=== PATIENT | female | born 1955 | race Caucasian/White ===

== ENCOUNTER 2019-10-12 01:15 | Observation (INO) | payer MEDICARE, SELFPAY ==
[2019-10-12] VITALS (14 sets, daily range): BP systolic 92–147; BP diastolic 53–83; PULSE 54–75; RESP 12–20; TEMP 36.3–37.4; O2SAT 93–100; BMI 31.4
--- NOTE | ~2019-10-12 | CT_ITS ---
EXAMINATION: CT abdomen pelvis w con INDICATION: Generalized abdominal pain TECHNIQUE: Computed tomographic images of the abdomen and pelvis were obtained after the administrati on of 100 cc of Omnipaque 350 intravenous contrast. The dose-length product (DLP) was 783.28 mGy-cm. Automated exposure control and iterative reconstruction technique were employed. COMPARISON: MRI, 02/21/2018 FINDINGS: The lung bases are clear. The heart size is normal. There is a small sliding hiatal hernia. The liver is diffusely low in attenuation when compared with the spleen, consistent with hepatic irma atosis. The gallbladder is distended and contains at least three stones. The spleen, pancreas, and ad renal glands are normal. Hypoattenuating lesions in the kidneys, measuring up to 8 mm on the right, a re too small to characterize but likely represent cysts. No pathologically enlarged abdominal or pelv ic lymph nodes are identified. There is no free intraperitoneal gas or evidence of bowel obstruction. The appendix is normal. Colonic diverticulosis is present without evidence of diverticulitis. There is moderate lumbar spondylosis at L5-S1. IMPRESSION: 1. Cholelithiasis with gallbladder distention. Finding could reflect acute cholecystitis. Consider fu rther evaluation with ultrasound or nuclear hepatobiliary scan. Reviewed, dictated and finalized at location A. BUILDER IMPRESSION: 1. Cholelithiasis with gallbladder distention. Finding could reflect acute chol ecystitis. Consider further evaluation with ultrasound or nuclear hepatobiliary scan.
--- NOTE | ~2019-10-12 | XR_ITS ---
EXAMINATION: XR chest 2V DATE: 10/12/2019 02:19 INDICATION: Midsternal chest pain TECHNIQUE: PA and lateral views of the chest are obtained. COMPARISON: None available FINDINGS: The lungs are free of acute opacities. There is no pleural effusion or pneumothorax. The ca rdiomediastinal silhouette is normal. The visualized bones and soft tissues are unremarkable. IMPRESSION: 1. No acute cardiopulmonary abnormality. Reviewed, dictated and finalized at location A. [facility]
--- NOTE | 2019-10-12 01:31 | ECG_ITS ---
Measurements Intervals [place] Rate: 54 P: -6 [place]: 159 QRS: 4 QRSD: 96 T: 17 QT: 429 QTc: 409 Interpretive Statements SINUS BRADYCARDIA LOW QRS VOLTAGE IN PRECORDIAL LEADS BORDERLINE T WAVE ABNORMALITY- INFERIOR LEADS BASELINE ARTIFACT- I, II, III, AVR, AVL, AVF BORDERLINE ECG Electronically Signed On 10-12-2019 6:53:23 DIRECTOR OF PARKS AND RECREATION by Brayan Whiting D.O.
--- NOTE | 2019-10-12 01:42 | ED.ABDPAIN ---
HPI - Abdominal Pain General Chief Complaint: Abdominal Pain Stated Complaint: cp Time Seen by Provider: 10/12/19 01:24 Source: patient and RN notes reviewed Mode of arrival: ambulatory Limitations: no limitations History of Present Illness HPI narrative: Pt is a 64 y/o female who presents to the ED with c/o epigastric pain starting around 11 PM this evening. She notes that her pain radiates into her back, and states that her pain is aggravated with deep breathing. Pt reports nausea and vomiting accompanying her pain, but denies any fever or chills. She states that she took 2 Tylenol for her pain this evening. Pt notes that she still has her gallbladder. MD elicited complaint: abdominal pain Onset (ago): hour(s) (2.5) Location: epigastric Radiation: back Exacerbating factors: other (deep breathing) Associated symptoms: nausea and vomiting Treatments prior to arrival: other (Tylenol) Related Data Allergies Allergy/AdvReac Type Severity Reaction Status Date / Time Penicillins Allergy Mild Hives Verified 10/12/19 01:30 Review of Systems Review of Systems: All systems reviewed & are unremarkable except as noted in HPI and below Constitutional: Constitutional: Denies chills and Denies fever(s) Gastrointestinal: Gastrointestinal: Reports abdominal pain (epigastric pain radiating into back), Reports nausea and Reports vomiting PMFSH Past Medical History Medical History Arm fracture DDD (degenerative disc disease) GERD (gastroesophageal reflux disease) HLD (hyperlipidemia) HTN (hypertension) Surgical History Surgical History Hx of tonsillectomy Family History Family History (Updated 04/09/12 @ 08:29 by DOCTOR UNKNOWN) Other Family history of coronary artery disease Hypertension Social History Social History Smoking status: Never smoker Alcohol intake: never Exam Narrative: Exam Narrative: APPEARANCE: No acute distress, nontoxic, resting in bed EYES: EOMI HEENT: Normocephalic, atraumatic, OMM RESPIRATORY: No respiratory distress Clear to auscultation bilaterally with no rhonchi wheezing or rales. CARDIOVASCULAR: Regular rate and rhythm without murmurs rubs or gallops. ABDOMINAL: Soft, nondistended, tender palpation epigastric and right upper quadrant, no tenderness left upper quadrant, right lower quadrant left lower quadrant, no rebound or guarding MUSCULOSKELETAl: Moves all extremities. No clubbing, cyanosis or edema. NEURO: Awake and alert. Following commands, speech normal, no focal deficits SKIN:: Warm, dry. No rashes lesions or abrasions PSYCHIATRIC: Normal affect/mood, Course Course Emergency Course: Discussed with Dr. Melara presentation work-up. Agrees with admission to his service at this time. Recommends no antibiotics at this time Discussed with patient and family results of workup and diagnosis. Discussed need for admission. Patient and family understand and agree to current treatment plan Vital Signs Vital signs: Vital Signs Temperature 98.2 F 10/12/19 01:22 Pulse Rate 55 L 10/12/19 01:22 Respiratory Rate 12 10/12/19 01:22 Blood Pressure 147/83 H 10/12/19 01:22 Pulse Oximetry 100 10/12/19 01:22 Temperature 98.2 F 10/12/19 01:22 Pulse Rate 70 10/12/19 02:21 Respiratory Rate 19 10/12/19 02:21 Blood Pressure 124/66 10/12/19 02:21 Pulse Oximetry 100 10/12/19 02:21 MDM - Abdominal Pain Lab Data Result diagrams: 10/12/19 01:44 10/12/19 01:42 Labs: Lab Results 10/12/19 10/12/19 10/12/19 Range/Units 01:42 01:42 01:44 WBC 14.9 H (4.5-10.0) K/mm3 RBC 4.91 (4.2-5.4) M/mm3 Hgb 14.4 (12.0-15.0) g/dL Hct 43.2 (37.0-47.0) % MCV 88.0 (80-100) fl MCH 29.3 (26-34) pg MCHC 33.3 (32-36) g/dl RDW 13.3 (11.5-14.5) % Plt Count 282 (150-375)
[2019-10-12 01:55] LABS: Basophils Absolute Auto 0.1 K/mm3 (0.0-0.1); Basophils Percent Auto 0.7 % (0.2-1.2); Eosinophils Absolute Auto 0.2 K/mm3 (0-0.3); Eosinophils Percent Auto 1.6 % (0-4.4); Hematocrit 43.2 % (37.0-47.0); Hemoglobin 14.4 g/dL (12.0-15.0); Immature Granulocyte Absolute 0.13 K/mm3 (0.00-0.031); Immature Granulocyte Percent A 0.9 % (0-0.5); Lymphocytes Absolute Auto 1.89 K/mm3 (0.9-3.2); Lymphocytes Percent Auto 12.7 % (18.3-44.2); Mean Corpuscular HGB Conc 33.3 g/dl (32-36); Mean Corpuscular Hemoglobin 29.3 pg (26-34); Mean Platelet Volume 9.9 fl (7.4-10.4); Monocytes Absolute Auto 0.8 K/mm3 (0.1-0.6); Monocytes Percent Auto 5.3 % (2.6-8.5); Neutrophils Absolute Auto 11.8 K/mm3 (1.3-6.7); Neutrophils Percent Auto 78.8 % (45.5-73.1); Platelet Count Result 282 k/mm3 (150-375); Red Blood Count 4.91 M/mm3 (4.2-5.4); Red Cell Distribution Width 13.3 % (11.5-14.5); White Blood Count 14.9 K/mm3 (4.5-10.0)
[2019-10-12] MEDS: LACTATED RINGERS 1,000 ML 999 ML IV CONT (02:00)
[2019-10-12] MEDS: ONDANSETRON INJ 4 MG/2 ML VIAL IV PUSH (02:01)
[2019-10-12 02:03] LABS: Alanine Aminotransferase 49 U/L (4-35); Albumin Level 4.3 g/dL (3.5-5.1); Alkaline Phosphatase 138 U/L (38-126); Aspartate Amino Transferase 31 U/L (14-36); Bilirubin,Total 0.6 mg/dL (0.2-1.3); Blood Urea Nitrogen 19 mg/dL (7-17); Calcium 9.7 mg/dL (8.4-10.2); Carbon Dioxide 31 mmol/L (22-30); Chloride 96 mmol/L (98-107); Estimated Glomerular Filt Rate > 60; Glucose 146 mg/dL (65-105); Lipase 46 U/L (23-300); Potassium 3.7 mmol/L (3.4-5.0); Sodium 140 mmol/L (137-145)
[2019-10-12 02:07] LABS: INR 0.9
--- NOTE | 2019-10-12 02:07 | PC.NURSE ---
Patient taken to CT.
[2019-10-12 02:08] LABS: Partial Thromboplastin Time 33.6 SECONDS (22.3-36.8)
[2019-10-12 02:16] LABS: Troponin I < 0.012 ng/mL (0.000-0.034)
[2019-10-12] MEDS: MORPHINE SULFATE 4 MG/ML INJ IV PUSH (02:28)
[2019-10-12 03:44] LABS: Alanine Aminotransferase 50 U/L (4-35); Albumin Level 4.3 g/dL (3.5-5.1); Alkaline Phosphatase 134 U/L (38-126); Aspartate Amino Transferase 33 U/L (14-36); Bilirubin,Total 0.5 mg/dL (0.2-1.3); Blood Urea Nitrogen 19 mg/dL (7-17); Calcium 9.7 mg/dL (8.4-10.2); Carbon Dioxide 30 mmol/L (22-30); Chloride 98 mmol/L (98-107); Estimated Glomerular Filt Rate > 60; Glucose 149 mg/dL (65-105); Potassium 3.7 mmol/L (3.4-5.0); Sodium 138 mmol/L (137-145)
--- NOTE | 2019-10-12 04:10 | ADMGEN ---
This patient, Mary Beth, was admitted to 2 Medical Room 240-. Patient/family oriented to hospital policies and general routines including ID bracelet, bed and alarms, visiting hours, pain management, procedures, bathroom and other care routines, personal items, smoking policy, room service/diet, and visiting hours. Valuables list has been completed. Information on how to activate the Rapid Response Team has been discussed. Patient/Family are encouraged to report perceived risks to care and to ask questions if they do not understand what they are told or what they should do.
[2019-10-12] MEDS: LACTATED RINGERS 1,000 ML 125 ML IV CONT ×2 (04:31→12:37)
[2019-10-12 06:29] LABS: Troponin I < 0.012 ng/mL (0.000-0.034)
[2019-10-12 08:10] LABS: Troponin I < 0.012 ng/mL (0.000-0.034)
--- NOTE | 2019-10-12 08:36 | WPDANESEPPF ---
Anes - Initial Pre Proc Eval Procedure: Operation Date: 10/12/19 16:00 Proposed Procedures p Laparoscopic Cholecystectomy,Possible Open - Hung Melara DO Date/Time: 10/12/19 08:36 Surgeon: Hung Melara DO Pre Op Diagnosis: Cholecystitis Patient Data Age: 64 Gender: F Height: 1.6 m Weight: 80.4 kg Last Vital Signs Temp 36.3 C L 10/12/19 05:39 Pulse 75 10/12/19 05:39 Resp 16 10/12/19 05:39 BP 135/67 10/12/19 05:39 Pulse Ox 97 10/12/19 05:39 Allergies Allergy/AdvReac Type Severity Reaction Status Date / Time Penicillins Allergy Mild Hives Verified 10/12/19 01:30 Home Medications Medication Instructions Recorded Confirmed Type atorvastatin 20 mg PO DAILY 10/12/19 10/12/19 History esomeprazole magnesium [Nexium] 20 mg PO DAILY 10/12/19 10/12/19 History estradiol 1 g VAGINAL TID 10/12/19 10/12/19 History hydrochlorothiazide 25 mg PO DAILY 10/12/19 10/12/19 History losartan 100 mg PO DAILY 10/12/19 10/12/19 History Laboratory Tests 10/12/19 10/12/19 10/12/19 01:42 01:42 01:43 WBC RBC Hgb Hct MCV MCH MCHC RDW Plt Count MPV Immature Gran % (Auto) Neut % (Auto) Lymph % (Auto) Mer[place] % (Auto) Eos % (Auto) Baso % (Auto) Lymph # (Auto) Merrick # (Auto) Eos # (Auto) Baso # (Auto) Abs Immat Gran (auto) Absolute Neuts (auto) Absolute Nucleated RBC Nucleated RBC % PT 12.0 Seconds Seconds (11.1-14.7) INR 0.9 APTT 33.6 SECONDS SECONDS (22.3-36.8) Sodium 140 mmol/L mmol/L 138 mmol/L mmol/L (137-145) (137-145) Potassium 3.7 mmol/L mmol/L 3.7 mmol/L mmol/L (3.4-5.0) (3.4-5.0) Chloride 96 mmol/L L mmol/L 98 mmol/L mmol/L (98-107) (98-107) Carbon Dioxide 31 mmol/L H mmol/L 30 mmol/L mmol/L (22-30) (22-30) BUN 19 mg/dL H mg/dL 19 mg/dL H mg/dL (7-17) (7-17) Creatinine 0.80 mg/dL mg/dL 0.80 mg/dL mg/dL (0.7-1.0) (0.7-1.0) Estim Creat Clear Calc Not Reportable Not Reportable Estimated GFR > 60 > 60 (59 - ) (59 - ) Glucose 146 mg/dL H mg/dL 149 mg/dL H mg/dL (65-105) (65-105) Calcium 9.7 mg/dL mg/dL 9.7 mg/dL mg/dL (8.4-10.2) (8.4-10.2) Total Bilirubin 0.6 mg/dL mg/dL 0.5 mg/dL mg/dL (0.2-1.3) (0.2-1.3) Direct Bilirubin 0.0 mg/dL mg/dL (0-0.3) AST 31 U/L U/L 33 U/L U/L (14-36) (14-36) ALT 49 U/L H U/L 50 U/L H U/L (4-35) (4-35) Alkaline Phosphatase 138 U/L H U/L 134 U/L H U/L (38-126) (38-126) Troponin I < 0.012 ng/mL ng/mL (0.000-0.034) Total Protein 8.0 g/dL g/dL 7.0 g/dL g/dL (6.3-8.2) (6.3-8.2) Albumin 4.3 g/dL g/dL 4.3 g/dL g/dL (3.5-5.1) (3.5-5.1) Lipase 46 U/L U/L (23-300) 10/12/19 10/12/19 10/12/19 01:44 04:58 07:32 WBC 14.9 K/mm3 H K/mm3 (4.5-10.0) RBC 4.91 M/mm3 M/mm3 (4.2-5.4) Hgb 14.4 g/dL g/dL (12.0-15.0) Hct 43.2 % % (37.0-47.0) MCV 88.0 fl fl (80-100) MCH 29.3 pg pg (26-34) MCHC 33.3 g/dl g/dl (32-36) RDW 13.3 % % (11.5-14.5) Plt Count 282 k/mm3 k/mm3 (150-375) MPV 9.9 fl fl (7.4-10.4) Immature Gran % (Auto) 0.9 % H % (0-0.5) Neut % (Auto) 78.8 % H % (45.5-73.1) Lymph % (Auto) 12.7 % L % (18.3-44.2) Merrick % (Auto) 5.3 % % (2.6-8.5) Eos % (Auto) 1.6 % % (0-4.4) Baso % (Auto) 0.7 % % (0.2-1.2) Lymph # (Auto) 1.89 K/mm3 K/mm3 (0.9-3.2) [place] # (Auto) 0.8 K/mm3 H K/mm3 (0.1-0.6) Eos # (Auto) 0.2 K/mm3 K/mm3 (0-0.3)
--- NOTE | 2019-10-12 09:29 | PM.IMHP ---
H&P: HPI History of Present Illness Chief complaint: Cholecystitis Narrative: Mary Beth is a 64 year old female with a history of hypertension, hyperlipidemia, and GERD, who presented to the emergency department with complaints of midsternal chest pain radiating to her back. The patient reports eating a rice and chicken meal with a crescent roll last night for dinner. She then ate ice cream and potato chips after this. The patient then developed a sudden onset of midsternal chest pain that radiated to her back around 10:00 p.m. while lying in bed. She reports having a similar episode of pain like this a few years ago that her PCP thought was related to her gallbladder, but the pain quickly resolved after about an hour and a half. This time, the pain continued to worsen and did not improve with getting up and walking around. She did develop nausea and vomiting. She felt the pain was worsening and was unrelenting, therefore she presented to the emergency department for further evaluation. CT scan of the abdomen and pelvis showed a distended gallbladder with a 1.7 cm gallstone near the neck of the gallbladder[place] [address], AST 33, ALT 50, alk-phos 134, lipase 46, and troponins negative x3. Chest x-ray showed no acute cardiopulmonary abnormalities. EKG was negative for acute changes. Our service was then contacted for the concern of acute cholecystitis with cholelithiasis. The patient was admitted to observation, started on IV fluids, analgesics, and made NPO. The patient is now being seen on the medical floor. She reports her pain has improved significantly after receiving pain medication. She still feels some mild pain but points to the epigastric region and states it radiates to her mid sternal chest and back. Reports the nausea has improved significantly. Bowels have been moving normally with her last bowel movement this morning. No other complaints at this time. Review of Systems Constitutional: Constitutional: Reports as per HPI, Denies chills, Denies excessive sweating, Denies fatigue, Denies fever(s), Denies headache(s) and Denies weakness Eyes: Eyes: Denies change in vision and Denies loss of vision ENT: Reports Normal hearing present, Denies dizziness and Denies headache(s) Cardiovascular: Cardiovascular: Reports chest pain (Mid sternal at rest, does not worsen with activity), Denies syncope, Denies pedal edema, Denies leg edema, Denies lightheadedness, Denies radiating jaw, neck or arm pain, Denies palpitations, Denies dyspnea, Denies dyspnea on exertion and Denies orthopnea Respiratory: Respiratory: Denies cough, Denies dyspnea and Denies wheezing Gastrointestinal: Gastrointestinal: Reports as per HPI, Reports abdominal pain (Epigastric), Denies bloating, Denies change in bowel habits, Denies constipation, Denies diarrhea, Reports nausea and Reports vomiting Musculoskeletal: Musculoskeletal: Denies deformity, Denies joint swelling, Denies radiating pain into limb and Denies tingling Integumentary/Breasts: Skin/Breast: Denies pruritus, Denies wounds and Denies jaundice Neurologic: Reports Normal hearing present, Denies confusion, Denies dizziness, Denies syncope, Denies headache(s), Denies loss of vision, Denies tingling, Denies tremor(s) and Denies weakness Psychiatric: Psychiatric: Denies anxiety and Denies depression Endocrine: Endocrine: Denies cold intolerance, Denies excessive sweating and Denies heat intolerance Hematologic/Lymphatic: Hematologic/Lymphatic: Denies easy bleeding and Denies easy bruising PMFSH Past Medical History Medical History Arm fracture DDD (degenerative disc disease) GERD (gastroesophageal reflux disease) HLD (hyperlipidemia) HTN (hypertension) Obesity Surgical History Surgical History (Updated 10/12/19 @ 09:40 by ELIER Maynard) History of colonoscopy January 2016, findings of internal hemorrhoi
[2019-10-12] MEDS: LACTATED RINGERS 1,000 ML 30 ML IV CONT (14:20)
--- NOTE | 2019-10-12 14:30 | PC.NURSE ---
To OR per bed. IV SL.
[2019-10-12] MEDS: IBUPROFEN IV 800 MG/200 ML 800 MG/200 ML BAG 400 MG IVPB (14:40)
[2019-10-12] MEDS: ceFAZolin 2 GM/D5W 50 ML 2 GM/50 ML BAG IVPB (16:52)
[2019-10-12] MEDS: BUPIVACAINE/EPINEPHRINE 0.5% 30 ML VIAL INFILTRATE (17:20)
--- NOTE | 2019-10-12 18:03 | PM.PROC ---
Procedure Note - Detailed Date of procedure: 10/12/19 Pre-op diagnosis: Acute calculous cholecystitis Post-op diagnosis: same Procedure performed: Laparoscopic Cholecystectomy Description of procedure: Procedure as well as risks, benefits, and alternatives were discussed with patient. Written consent was obtained and placed in chart prior to procedure. The patient was brought back to surgical suite. Patient was placed in supine position on operating table. Time-out was done to confirm patient and procedure. Patient was then intubated by the anesthesia department. Abdomen was prepped and draped in sterile fashion using chlorhexidine prep. 0.5% bupivacaine with epinephrine was infiltrated at each site of incision. A 5 millimeter incision was made near the umbilicus, and a 5 millimeter Optiview trocar was advanced through the abdominal layers under direct visualization. Once inside the abdominal cavity, carbon dioxide was insufflated to create a pneumoperitoneum. The camera was inserted and the abdomen was inspected. No immediate abnormalities were identified. The patient was placed in reverse Trendelenburg position and rotated slightly to the left. An 11 millimeter incision was made in the subxiphoid region, and an 11 millimeter trocar was inserted under direct visualization. Two 5 millimeter incisions were made in the right upper quadrant, and two 5 millimeter trocars were inserted under direct visualization. The gallbladder was identified and grasped at the fundus and retracted superiorly. It was then grasped at the infundibulum retracted laterally. Careful dissection around the neck of the gallbladder was performed using blunt dissection with a [place] grasper and hook electrocautery. The cystic duct was identified, and a window was created behind it. The cystic artery was also identified and a window was created behind it. The critical view of safety was identified, visualizing the cystic duct running directly into the neck of the gallbladder, and the cystic artery running directly into the wall of the gallbladder. A 5 millimeter clip insulation blower was then used to place 2 clips proximally and 1 clip distally on both the cystic duct and cystic artery. They were then both transected using endoscopic scissors. Once safely away from the jaquelin hepatitis, the gallbladder was dissected free from the liver bed using hook electrocautery. Hemostasis was achieved along the way. The gallbladder was removed completely and then removed through the subxiphoid port. The liver bed was then inspected. Hemostasis appeared adequate, and our clips appeared secure. The area was gently irrigated with sterile saline. No other abnormalities were seen. The patient was flattened out in bed, and 1 final inspection was made around the abdominal cavity. The subxiphoid port was removed, and a Dante Deuce cone was used to approximate the fascia with an 0-Vicryl simple interrupted suture. The remaining ports were then removed under direct visualization, the camera was removed, and the pneumoperitoneum was released. The skin of the incisions was approximated using 4-0 Monocryl subcuticular sutures. Exofin glue was applied on top. The patient was then awakened from anesthesia, extubated, and transferred to recovery. Anesthesia: GETA and local (0.5% bupivicaine with epi) Surgeon: Hung Melara DO Estimated blood loss (mL): 5 Drains: No Packing: No Pathology: yes Complications: No immediate complications Condition: stable (Patient tolerated procedure well, and is currently resting comfortably in recovery.) Disposition: same day Findings: This is a 64-year-old woman who presented to the emergency department this morning with complaints of epigastric and right upper quadrant abdominal pain. She began having pain last night shortly after dinner. She had 1 episode similar to this a couple years ago. She denied any fevers or chills or any change in bowel habits. In the dee
--- NOTE | 2019-10-12 19:26 | PC.NURSE ---
PT RETURNED FROM OR PER BED. A&OX3. VOICES NO C/O AT PRESENT
[2019-10-12] MEDS: metroNIDAZOLE 500 MG/ISO 100ML 500 MG/100 ML BAG 100 MG IVPB (21:38)
[2019-10-13 02:00] VITALS: BP 92/58; PULSE 65; RESP 16; TEMP 36.7; O2SAT 93
[2019-10-13] MEDS: metroNIDAZOLE 500 MG/ISO 100ML 500 MG/100 ML BAG 100 MG IVPB ×2 (03:03→08:24)
[2019-10-13 05:56] VITALS: BP 96/55; PULSE 60; RESP 16; TEMP 36.7; O2SAT 93
[2019-10-13 06:07] LABS: Hematocrit 37.4 % (37.0-47.0); Hemoglobin 12.3 g/dL (12.0-15.0); Mean Corpuscular HGB Conc 32.9 g/dl (32-36); Mean Corpuscular Hemoglobin 29.1 pg (26-34); Mean Corpuscular Volume 88.6 fl (80-100); Mean Platelet Volume 10.5 fl (7.4-10.4); Platelet Count Result 235 k/mm3 (150-375); Red Blood Count 4.22 M/mm3 (4.2-5.4); Red Cell Distribution Width 13.4 % (11.5-14.5); White Blood Count 12.3 K/mm3 (4.5-10.0)
[2019-10-13 06:24] LABS: Blood Urea Nitrogen 13 mg/dL (7-17); Calcium 8.5 mg/dL (8.4-10.2); Carbon Dioxide 27 mmol/L (22-30); Chloride 96 mmol/L (98-107); Estimated CRCL calculation 69 ml/min; Estimated Glomerular Filt Rate > 60; Glucose 122 mg/dL (65-105); Potassium 3.5 mmol/L (3.4-5.0); Sodium 136 mmol/L (137-145)
[2019-10-13 08:00] VITALS: BP 93/56; PULSE 58
[2019-10-13] MEDS: ATORVASTATIN 20 MG TABLET PO (08:27)
[2019-10-13] MEDS: PANTOPRAZOLE 40 MG TABLET PO (08:29)
[2019-10-13 10:00] VITALS: BP 106/65; PULSE 58; RESP 16; TEMP 36.3; O2SAT 97
--- NOTE | 2019-10-13 11:19 | PM.DS ---
DS: Diagnosis Admitting Diagnosis Admitting Diagnosis: Acute cholecystitis Discharge Diagnosis (1) Acute cholecystitis: Code(s): K81.0 - Acute cholecystitis Status: Acute (2) HTN (hypertension): Code(s): I10 - Essential (primary) hypertension Status: Acute (3) HLD (hyperlipidemia): Code(s): E78.5 - Hyperlipidemia, unspecified Status: Acute (4) GERD (gastroesophageal reflux disease): Code(s): K21.9 - Gastro-esophageal reflux disease without esophagitis Status: Acute (5) Obesity: Code(s): E66.9 - Obesity, unspecified Status: Acute DS: Summary Hospital Course Reason for hospitalization: Mary Beth is a 64 year old female with a history of hypertension, hyperlipidemia, and GERD, who presented to the emergency department with complaints of substernal chest pain radiating to her back. The pain started around 10:00 pm the evening before coming to the ED after eating a meal. She had associated nausea and vomiting. ED workup revealed leukocytosis of 14,900 and normal LFTs. Cardiac workup negative. CT scan of the abdomen and pelvis showed a distended gallbladder with a 1.7 cm gallstone near the neck of the gallbladder, concerning for acute cholecystitis. Our service was then contacted for the concern of acute cholecystitis with cholelithiasis. The patient was admitted to observation, started on IV fluids, analgesics, and made NPO. Hospital Course: After evaluation by myself and Dr. Melara, the decision was made to proceed with surgery. She had a laparoscopic cholecystectomy on 10/12/19. No immediate complications. She was started on IV antibotics due to the intraoperative findings of an acutely inflammed gallbladder with possible initial gangrenous changes. Due to her penicillin allergy, she was started on IV Levaquin/Flagyl and will be sent home on 5 days of oral antibiotics. The patient was slowly advanced to a low fat diet and is tolerating this well this morning without any nausea, vomiting, or bloating. Her abdominal pain post-op has been tolerable without any narcotic medications. She will be sent home on Tylenol and Ibuprofen as discussed. Her blood pressure was 90/50's this morning and I had the nurse hold her losartan and HCTZ and recheck her blood pressure. This came up above 100/60 and she is completely asymptomatic. She did have a LR bolus run through the night and is tolerating oral intake. When talking with the patient this morning, she tells me she will go 2-3 days without taking her blood pressure medication at times just due to forgetting and it takes her blood pressure a few days before it is high and she needs to start taking it again. She does have a BP machine at home to monitor her blood pressure. No signs of bleeding and minimal blood loss in surgery. She is hemodynamically stable. I instructed her to hold her BP medications today and monitor her blood pressure daily and PRN at home. Discussed s/s of hypertension and hypotension and what to do if either occur. She voiced understanding. Once her blood pressure is back to her normal, then she was instructed to restart her medications. Otherwise, the patient has no other complaints. She is voiding well and tolerating activity. Discussed with Dr. Melara this morning, who is also okay with discharging the patient today if stable. I discussed all discharge care instructions with her and her . Questions answered. Status at Discharge Functional status at discharge: independent ambulation Overall status at discharge: patient is progressing back to baseline Time Spent with Patient Time attestation: Total time spent providing and/or coordinating discharge services: Time spent: Greater than 30 minutes Exam Const: General: comfortable, no acute distress, alert and awake Orientation/consciousness: patient oriented x3 GI: Inspection: non-distended and incision (Abdominal incisions clean/dry/intact. mild ecchymosis around incisions)
== END 2019-10-13 12:21 | disposition home or self-care (01) ==
LOC: ANHED 03:06 → ANH2MED 03:36
PROVIDERS: Admitting Provider Surgery; Emergency Provider Emergency Medicine; PCP Internal Medicine; Visit Provider Surgery
PROC: 0FT44ZZ Resection of Gallbladder, Percutaneous Endoscopic Approach (ICD-10-PCS; CPT 47562; principal; 2019-10-12 16:00)
DX: K80.00 Calculus of gallbladder with acute cholecystitis without obstruction (principal); I10 Essential (primary) hypertension; E78.5 Hyperlipidemia, unspecified; K21.9 Gastro-esophageal reflux disease without esophagitis; E66.9 Obesity, unspecified; Z68.31 Body mass index [BMI] 31.0-31.9, adult; Z79.899 Other long term (current) drug therapy; Z88.0 Allergy status to penicillin
CPT/HCPCS: 47562; 36415; 71046; 74177; 80048; 80053; 80076; 82248; 83690; 84484; 85025; 85027; 85610; 85730; 88304; 93005; 96361; 96365; 96375; 99285; A9270; G0378; J0131; J0690; J1100; J1741; J1956; J2250; J2270; J2370; J2405; J2704; J3010; J7030; J7120; Q9967

== ENCOUNTER → 2022-01-11 10:10 | Outpatient (CLI) | payer MEDICARE, SELFPAY ==
--- NOTE | ~2022-01-11 | MM_ITS ---
EXAMINATION: MM screening [facility] BI w roxy HISTORY: Screening mammogram TECHNIQUE: Craniocaudal and mediolateral oblique 3-D tomosynthesis images were obtained and synthetic 2-D images were generated. CAD analysis was submitted and interpreted. COMPARISON: 07/21/2019, 07/17/2018, 03/08/2017 bilateral screening mammogram examinations BREAST PARENCHYMAL COMPOSITION: The breasts are almost entirely fatty. FINDINGS: There is no evidence of suspicious mass, calcification, or architectural distortion to sugg est malignancy in either breast. There has been no suspicious interval change. IMPRESSION: 1. No mammographic evidence of malignancy. 2. Recommend routine screening mammography in one year. BI-RADS Category 1: Negative Reviewed, dictated and finalized at location A.
--- NOTE | ~2022-01-11 | DEXA_ITS ---
Bone Density Report Name: AMY CHO Age: 66 Sex: Female Ethnicity: White Date of : 1955 Indication: postmenopausal; screening for osteoporosis; Referring Provider: MARY ALICE, AMAURY Fuentes Study: Bone densitometry was performed. Exam Date: January 11, 2022 Accession number: [id number] Bone Density: Region BMD T-score Z-score Classification AP Spine (L1-L4) 1.101 0.5 2.4 Normal Femoral Neck (Left) 0.873 0.2 1.9 Normal Total Hip (Left) 1.065 1.0 2.4 Normal Femoral Neck (Right) 0.882 0.3 2.0 Normal Total Hip (Right) 0.995 0.4 1.8 Normal Total Hip Mean 1.030 0.7 2.1 Normal World Health Organization criteria for BMD impression classify patients as: Normal (T-score at or above -1.0), Osteopenia (T-score between -1.0 and -2.5), or Osteoporosis (T-score at or below -2.5). 10-year Fracture Risk: FRAX not reported because: All T-scores for Spine Total, Hip Total, Femoral Neck at or above -1.0 Previous Exams: Region Exam Age BMD T-score BMD Change BMD Change Date g/cm2 vs Baseline vs Previous AP Spine(L1-L4) 01/11/2022 66 1.101 0.5 -0.005 -0.041* 03/08/2017 61 1.142 0.9 0.036* 0.036* 09/12/2011 56 1.106 0.5 Total Hip(Left) 01/11/2022 66 1.065 1.0 0.031* 0.048* 03/08/2017 61 1.017 0.6 -0.016 -0.016 09/12/2011 56 1.034 0.8 Total Hip(Right) 01/11/2022 66 0.995 0.4 -0.025 -0.025 03/08/2017 61 1.020 0.6 0.000 0.000 09/12/2011 56 1.020 0.6 *Denotes significance at 95% confidence level, LSC for AP Spine = 0.022 g/cm2, LSC for Total Hip = 0.027 g/cm2 Clinical Information Provided by Patient: Patient maximum height was 63.0 Menopause Age: 51 No regular weight bearing exercise Drinks caffeinated beverages Onset of menses at age 9 Number of children 2 Impression: The patient has normal bone mass. The BMD for the AP Spine(L1-L4) decreased, changing by -0.041 since the last DXA exam. Discussion: BONE DENSITY IS ABOVE THE MINIMUM DESIRABLE LEVEL AT ALL SKELETAL SITES TESTED. This patient?s bone mineral density is above the minimum desirable level (T-score -1.0 or better) at all sites measured. The patient should follow a healthful lifestyle (good nutrition with adequate calcium and vitamin D, and appropriate weight-bearing exercise). Follow-Up: Consider repeating this study in 3 to 4 years to r
== END ==
PROVIDERS: PCP Internal Medicine; Visit Provider Internal Medicine
DX: Z12.31 Encounter for screening mammogram for malignant neoplasm of breast (principal); Z78.0 Asymptomatic menopausal state
CPT/HCPCS: 77063; 77067; 77080

== ENCOUNTER → 2022-04-03 09:42 | Outpatient (CLI) | payer MEDICARE, SELFPAY ==
--- NOTE | ~2022-04-03 | MR_ITS ---
EXAMINATION: MR brain IAC wo/w con DATE: 04/03/2022 11:28 INDICATION: Left-sided asymmetrical hearing loss. TECHNIQUE: Magnetic resonance imaging (MRI) of the brain, brainstem, and internal auditory canals was performed without and with 15 mL MultiHance intravenous contrast. COMPARISON: None. FINDINGS: There is diffuse pachymeningeal thickening and enhancement. There is no intracranial hemorr cece, acute infarction, or abnormal intracranial mass lesion. The ventricles are normal in size. The internal auditory canals and inner and middle ears are normal. The mastoid air cells are normal. The paranasal sinuses are clear. The orbits are normal. IMPRESSION: 1. Diffuse pachymeningeal thickening and enhancement. This finding is most commonly secondary to prio r lumbar puncture or spine surgery and can last for years. This finding can also be seen with meningi tis or intracranial hypotension. Reviewed, dictated and finalized at location A. IMPRESSION: 1. Diffuse pachymeningeal thickening and enhancement. This finding is most comm only secondary to prior lumbar puncture or spine surgery and can last for years . This finding can also be seen with meningitis or intracranial hypotension.
== END ==
PROVIDERS: PCP Internal Medicine
DX: H91.8X2 Other specified hearing loss, left ear (principal); R93.89 Abnormal findings on diagnostic imaging of other specified body structures
CPT/HCPCS: 70553; A9577